=== PATIENT | male | born 1995 | race Caucasian/White ===

== ENCOUNTER 2024-05-02 01:17 | Inpatient (IN) | payer OTHER, SELFPAY ==
[2024-05-02] VITALS (13 sets, daily range): BP systolic 93–117; BP diastolic 48–76; PULSE 77–94; RESP 13–20; TEMP 36.1–37.2; O2SAT 94–100; BMI 29.4
--- NOTE | ~2024-05-02 | XR_ITS ---
CLINICAL HISTORY: overdose 1 view chest x-ray Comparison: None Findings: Low lung volumes with mild bibasilar atelectasis and/or pneumonitis. No pneumothorax or pleural effusion with obscuration of the lung bases. Cardiac silhouette and imaged mediastinum are accentuated by AP magnification. Osseous structures are unremarkable for technique. IMPRESSION: Low lung volumes with bibasilar atelectasis and/or pneumonitis This document has been electronically signed by: Mark Kong MD on 05/02/2024 02:27:58
--- NOTE | 2024-05-02 01:48 | ECG_ITS ---
Test Reason : OVERDOSE Blood Pressure : */* mmHG Vent. Rate : 81 BPM Atrial Rate : 81 BPM P-R Int : 164 ms QRS Dur : 92 ms QT Int : 402 ms P-R-T Axes : 40 -12 -5 degrees QTcB Int : 466 ms Normal sinus rhythm Minimal voltage criteria for LVH, may be normal variant ( R in aVL ) Borderline ECG No previous ECGs available Referred By: Mika Schuster Electronically Signed By: ESTHER VILLEGAS
[2024-05-02 02:24] LABS: Basophils Percent Auto 0.8 % (0-2); Eosinophils Percent Auto 0.6 % (0-4); Hematocrit 39.4 % (42.0-52.0); Imm Gran Abs Auto 0.02 X10*3/uL (0.00-0.03); Imm Gran Pct Auto 0.4 % (0.0-0.4); Lymphocytes Absolute Auto 1.3 X10*3/uL (1.2-4.9); MANUAL DIFF FLAG NO; Mean Corpuscular HGB Conc 35.5 g/dl (31.0-36.0); Mean Corpuscular Hemoglobin 31.1 pg (27.0-33.0); Mean Corpuscular Volume 87.6 fL (80.0-98.0); Mean Platelet Volume 9.4 fL (9.4-12.4); Monocytes Absolute Auto 0.2 X10*3/uL (0.1-1.2); Monocytes Percent Auto 3.7 % (2-11); Neutrophils Absolute Auto 3.5 x10*3/uL (2.0-8.3); Neutrophils Percent Auto 68.5 % (45-73); Platelet Count 194 X10*3/uL (160-400); Red Cell Distribution Width 11.8 % (11.0-16.0); White Blood Count 5.1 X10*3/uL (4.8-10.8)
[2024-05-02 02:36] LABS: Prothrombin Time 11.4 SEC (10.9-12.4)
[2024-05-02 02:39] LABS: Partial Thromboplastin Time 30.1 SEC (26.0-36.8)
[2024-05-02 02:44] LABS: Acetaminophen LAB < 3 mcg/mL (<30); Salicylate < 5.0 mg/dL (15-30)
--- NOTE | 2024-05-02 02:46 | ED_ITS ---
HPI - Overdose General Chief Complaint: Overdose Stated Complaint: overdose Time Seen by Provider: 05/02/24 01:35 Source: patient and family Mode of arrival: EMS Limitations: no limitations History of Present Illness ED Provider: HPI Narrative: Patient's history of depression have strained relationship with his girlfriend around 23:00 patient took about 10 tablets of 0.5 mg Klonopin and 10 tablets 50 mg of gabapentin also had few drinks girlfriend went out from 01/19 when she came back at 12:30 patient was found groggy and told this to the girlfriend patient does have prior history cutting himself do have family history of depression and suicidal attempt Related Data Allergies Allergy/AdvReac Type Severity Reaction Status Date / Time Unable to Assess Allergy Verified 05/02/24 01:39 Review of Systems 2 Review of Systems: Yes all other systems are reviewed and are negative [facility] Social History Social History Smoked in Last 30 Days: No Use of substances other than those prescribed or required for medical reasons: No Advance Directives: No Advance Directives Information Provided: Yes Physical Exam 2 Vital Signs: Vital Signs: Last Vital Signs Temp 98.9 F 05/02/24 06:00 Pulse 77 05/02/24 06:45 Resp 14 05/02/24 06:45 BP 110/69 05/02/24 06:45 Pulse Ox 100 05/02/24 06:45 O2 Del Method Nasal Cannula 05/02/24 06:45 O2 Flow Rate 1 05/02/24 06:45 BMI result Body Mass Index 29.4 Appearance: Alert. Lethargic falling sleep but able to drink water No acute distress. Eyes: PERRLA, No Nystagmus ENT: Pharynx normal. Oral Mucosa moist Neck: Normal inspection. Neck supple. CVS: Normal heart rate and rhythm. Pulses normal. Respiratory: No respiratory distress. Equal air entry bilateral, no wheezing/rales/rhonchi Abdomen: Soft and nontender. Bowel sounds are present, no mass palpable, no CVA tenderness Skin: Skin warm and dry. Normal skin color. Normal skin turgor. Extremities: No lower extremity edema. No calf tenderness Neuro: Oriented X 3. No motor deficit. No sensory deficit.No cerebellar signs , cranial nerves II-XII intact Medications Administered Discontinued Medications Generic Name Dose Route Start Last Admin Trade Name Slim PRN Reason Stop Dose Admin Sodium Chloride 1,000 mls @ 999 mls/hr 05/02/24 04:07 05/02/24 05:22 Ns IV 05/02/24 05:07 Infused .Q1H1M ONE Infusion Medical Decision Making Medical Decision Making [facility] Narrative: Patient with Klonopin and gabapentin non lethal dose along with patient has had ETOH with severe depression will consult care team for further evaluation. Does have history of suicidal attempt in the past Lab Data [facility] Lab Attestation statement: I reviewed the patient's lab results. 05/02/24 02:18 05/02/24 02:18 Labs: Lab Results 05/02/24 05/02/24 Range/Units 02:18 02:20 WBC 5.1 (4.8-10.8) X10*3/uL RBC 4.50 L (4.60-5.80) X10*6/uL Hgb 14.0 (14.0-18.0) g/dl Hct 39.4 L (42.0-52.0) % MCV 87.6 (80.0-98.0) fL MCH 31.1 (27.0-33.0) pg MCHC 35.5 (31.0-36.0) g/dl RDW 11.8 (11.0-16.0) % Plt Count 194 (160-400) X10*3/uL MPV 9.4 (9.4-12.4) fL Immature Gran % (Auto) 0.4 (0.0-0.4) % Neut % (Auto) 68.5 (45-73) % Lymph % (Auto) 26.0 (20-40) % [place] % (Auto) 3.7 (2-11) % Eos % (Auto) 0.6 (0-4) % Baso % (Auto) 0.8 (0-2) % Lymph # (Auto) 1.3 (1.2-4.9) X10*3/uL [place] # (Auto) 0.2 (0.1-1.2) X10*3/uL Eos # (Auto) 0.0 (0.0-0.4) X10*3/uL Baso # (Auto) 0.0 (0.0-0.2) X10*3/uL Abs Immat Gran (auto) 0.02 (0.00-0.03) X10*3/uL Absolute Neuts (auto) 3.5 (2.0-8.3) x10*3/uL Absolute Nucleated RBC 0.000 (0.0-0.012) X10*3/uL Nucleated RBC % (auto) 0.0 (0.0-0.2) /100WBC PT 11.4 (10.9-12.4) SEC INR 1.0 (0.9-1.1) APTT 30.1 (26.0-36.8) SEC Sodium 143 (135-145) mmol/L Potassium 3.9 (3.3-5.1) mmol/L Chloride 111 H (96-108) mmol/L Carbon Dioxide 23 (22-29) mmol/L Anion Gap 13 (12-20) BUN 6 L (9-16) mg/dL Creatinine 0.86 (0.5-1.4) mg/dL Estim Creat Clear Calc 135.2 Estimated GFR > 60 Random Glucose 123 H (60-115) mg/dL Calcium 8.4 (8.4-10.2) mg/dL Magnesium 2.5 (1.6-2.6) mg/dL Total Bilirubin 0.6 (0.0-1.0) mg/dL AST 33 (5-37) U/L ALT 32 (0-40) U/L Alkaline Phosphatase 86 (39-117) U/L Troponin I High Sens < 2.7 (<3.5-35.0) ng/L Total Protein 7.5 (6.5-8.0) g/dL Albumin 4.3 (3.5-5.0) g/dL Salicylates < 5.0 L (15-30) mg/dL Acetaminophen < 3 (<30) mcg/mL Ethyl Alcohol 257 mg/dL Influenza Type A (PCR) NEGATIVE (Negative) Influenza Type B (PCR) NEGATIVE (Negative) RSV RNA Qual (PCR) NEGATIVE (Negative) SARS-CoV-2 RNA (RT-PCR) NEGATIVE (Negative) Discharge Plan Discharge Clinical Impression: Suicide attempt by multiple drug overdose Patient Disposition: Still a Patient Print Language: Uzbek
[2024-05-02 02:48] LABS: Troponin-I High Sensitivity < 2.7 ng/L (<3.5-35.0)
[2024-05-02 02:49] LABS: Alanine Aminotransferase 32 U/L (0-40); Albumin Level 4.3 g/dL (3.5-5.0); Anion Gap 13 (12-20); Aspartate Amino Transferase 33 U/L (5-37); Bilirubin Total 0.6 mg/dL (0.0-1.0); Blood Urea Nitrogen 6 mg/dL (9-16); Calcium 8.4 mg/dL (8.4-10.2); Carbon Dioxide 23 mmol/L (22-29); Chloride 111 mmol/L (96-108); Creatinine Clr Calc Pharmacy 135.2; Estimated Glomerular Filt Rate > 60; Ethanol 257 mg/dL; Glucose Random 123 mg/dL (60-115); Magnesium 2.5 mg/dL (1.6-2.6); Potassium 3.9 mmol/L (3.3-5.1); Sodium 143 mmol/L (135-145); Total Protein 7.5 g/dL (6.5-8.0)
[2024-05-02 02:53] LABS: Alkaline Phosphatase 86 U/L (39-117)
[2024-05-02 03:01] LABS: Influenza A PCR NEGATIVE (Negative); Influenza B PCR NEGATIVE (Negative); Resp Syncy Virus RNA Qual PCR NEGATIVE (Negative); SARS COV2 PCR INHOUSE NEGATIVE (Negative)
[2024-05-02] MEDS: 0.9 % Sodium Chloride 1,000 ML 999 ML IV (04:11)
--- NOTE | 2024-05-02 05:17 | PC.NURSE ---
This RN called poison control per poison control, support care only is needed, to give gentle IVF if vitals indicate. Per poision control sedation could last 6-8 hours. MD notified
--- NOTE | 2024-05-02 06:19 | PC.NURSE ---
provider notified of patients vitals no new orders at this time
--- NOTE | 2024-05-02 08:52 | PC.NURSE ---
pt is extremely sleepy at this time, pt started to have some hiccups/gurgling noises for a few seconds, attempted to wake the pt up- pt did wake for a very breath second-stated that he does not have pain then right back to sleep, vs stable at this time, ns on the monitor, parents at bedside and sitter at bedside
--- NOTE | 2024-05-02 12:48 | PC.NURSE ---
pt continuos on being sleepy, vs stable family at bedside and sitter at bedside
--- NOTE | 2024-05-02 13:15 | PC.NURSE ---
pt is starting to wake up and stay awake at this time
--- NOTE | 2024-05-02 13:25 | PC.NURSE ---
care team at bedside
--- NOTE | 2024-05-02 13:28 | MHC.CARE ---
Rocket Test Fire Worker received call from pt's fiance that pt has awoken. Rocket Test Fire Worker met with pt in ED19 briefly and it appeared pt was still very groggy/ impaired. He politely asked if he could have some time before meeting with the CARE Team. Rocket Test Fire Worker informed pt that someone from the CARE Team will be able to follow-up with him once he is awake and more alert for disposition planning, but the plan for him currently is to remain in the ED. Pt is agreeable to this and thanks typewriter aligner. He seems open to [facility]. His fiance is at bedside.
[2024-05-02 20:10] LABS: Amphetamine Screen Urine Not Detected (Not Detect); Barbiturates, Urine Not Detected (Not Detect); Benzodiazepines Screen Urine Not Detected (Not Detect); Buprenorphine Scr Not Detected (Not Detect); Cannabinoid Screen Urine POSITIVE (Not Detect); Cocaine Screen Urine Not Detected (Not Detect); Fentanyl, urine Not Detected (Not Detect); Methadone Screen, Urine Not Detected (Not Detect); Opiate Screen Urine Not Detected (Not Detect); Oxycodone Screen Urine Not Detected (Not Detect); Phencyclidine Screen Urine Not Detected (Not Detect)
[2024-05-03 06:10] VITALS: BP 137/99; PULSE 70; RESP 18; TEMP 37.2; O2SAT 96
--- NOTE | 2024-05-03 06:19 | PC.NURSE ---
Patient slept through the night, no distress observed/reported, disposition per care team is section 12 inpatient bed search, 15 minutes safety check, no behavior and safety concerns, will continue to monitor
--- NOTE | 2024-05-03 06:59 | PC.NURSE ---
Assumed care of patient at 0645, patient appears to be sleeping, respirations even and unlabored, no apparent distress noted. Continue plan of care for inpatient bedsearch
--- NOTE | 2024-05-03 09:13 | PHA.MEDREC ---
Pharmacy Consult ? Medication Reconciliation Pharmacy has completed the medication reconciliation. Reviewed med rec done by nursing (Pavel).
[2024-05-03] MEDS: Nicotine Polacrilex 2 MG GUM BUCCAL ×2 (17:08→20:09)
[2024-05-03 20:09] VITALS: BP 136/94; PULSE 82; RESP 18; TEMP 36.9; O2SAT 99
[2024-05-04 06:03] VITALS: BP 127/85; PULSE 78; RESP 16; TEMP 36.7; O2SAT 98
[2024-05-04] MEDS: Nicotine Polacrilex 2 MG GUM BUCCAL ×2 (07:57→10:39)
[2024-05-04] MEDS: DULoxetine HCl 30 MG CAPSULE.DR PO (08:27)
--- NOTE | 2024-05-04 12:40 | PC.NURSE ---
Report to floor
[2024-05-04 14:34] VITALS: BMI 29.1
[2024-05-04 14:51] VITALS: BP 125/86; PULSE 79; RESP 16; TEMP 36.6; O2SAT 99
[2024-05-04] MEDS: Nicotine Polacrilex Lozenge 4 MG LOZENGE BUCCAL ×2 (15:23→18:58)
--- NOTE | 2024-05-04 16:19 | PC.ADMIT ---
This is the 1st admission for this 29 y.o. male to a [facility] Behavioral Health unit. Arrived on milieu at 1325 on Section 12A and placed on 15 min safety checks. Referred by [facility] Care Team with Dx of Major Depressive D/O, recurrent, severe. Precipitating events to admission: brought to [facility] ED by ambulance due to suicide attempt via intentional overdose on Klonopin and Gabapentin. Nurse to nurse done with ED pod prior to admission. Skin check/car changer done upon admission with 2 staff present. Reports stressors as relationship stressors. Reports 1 prior suicide attempt Feb 2024 via cutting right wrist with knife. States fiance interrupted attempt in Feb. Substance issues: Tox screen positive for nydiauana, BAL 257 upon admission to ED 05/02/24. CIWA results 4, upon admission to this unit. Slight left hand tremor noted, will continue to monitor. Reports drinking 4x weekly, accepting of addiction counselor, denies cravings. ED pod reported chest xray indicated pneumonia. Pt asymptomatic, no antibiotics ordered. Rates depression #7-8, anxiety #2 on scale 1-10(10 worse. Denies SI/HI, denies AH/VH. Visits scheduled with firoz and parents for this miky. Met with Liz Patterson APRN and signed CV.
[2024-05-04] MEDS: LORazepam 1 MG TABLET PO (18:02)
[2024-05-04 19:57] VITALS: BP 137/88; PULSE 108; TEMP 36.6; O2SAT 96
[2024-05-04] MEDS: hydrOXYzine HCL 25 MG TABLET PO (21:07)
[2024-05-04] MEDS: traZODone HCL 50 MG TABLET PO (21:07)
[2024-05-05 08:09] VITALS: BP 115/70; PULSE 93; RESP 18; TEMP 36; O2SAT 98
[2024-05-05] MEDS: Folic Acid 1 MG TABLET PO (08:25)
[2024-05-05] MEDS: DULoxetine HCl 30 MG CAPSULE.DR PO (08:25)
[2024-05-05] MEDS: Thiamine HCL 100 MG TABLET PO (08:25)
[2024-05-05] MEDS: Nicotine Polacrilex Lozenge 4 MG LOZENGE BUCCAL ×3 (08:58→18:29)
[2024-05-05 09:14] LABS: Cholesterol 248 mg/dL (<200); HDL Cholesterol 47 mg/dL (>40); LDL Cholesterol Calculated 155 mg/dL (<100); Triglycerides 232 mg/dL (<150)
[2024-05-05 09:21] LABS: Estimated Average Glucose 103 mg/dL; Hemoglobin A1C 143.5345 umol/L; Hemoglobin A1c % 5.2 % (<6.0); Total Hemoglobin (HGBA1C) 4304.9314 umol/L
--- NOTE | 2024-05-05 09:25 | P.HPPS_ITS ---
HPI Date of Service: 05/05/24 Chief Complaint: Overdose Sources of Information: patient interviewed, chart reviewed and crisis/core team assessment reviewed HPI Subjective Notes: [place] Warning and Conditional Voluntary Narrative: Patient is a 29 yo male with hx of Depression, PTSD, ADHD, alcohol use disorder, who presents for intentional overdose in face of untreated depression and relational strife. Pt reports up until this February he was doing overall well, coping as usual with his regular, chronic depression. In late February, big argument with beth and she moved out for a week. She came back, another argument and she left again; he was intoxicated, had SI thought, debated whether to end his life but only superficial cut wrist once he heard her returning home...she helped him clean up, called Crisis who referred him to PCP. He and beth reconciled and started couples therapy throughout March which was a good month. Pt reports that one issue throughout their relationship is his struggle with physical intimacy (due to hx of depression?, daily alcoholism?); over the past two weeks, his Fiance expressed increased frustration wit this and said she wants to have an open relationship. This upset him; he realized he needs to change or lose the relationship but in her frustration, she met up with a male friend intending sexual relationship. He found this out (she admitted it); he punched a trash can, drank 1/2 bottle of Gin and took overdose, though says he does not remember much about it other than glimpses; he then woke up next day in ED. Denies other drug use; denies hx of manic episodes, AVH/delusions. Denies overt trauma. He has been on Cymbalta 30mg for over a year with little effect. Past Psychiatric History: No past psych admissions Recently started therapy no hx of suicide attempts depressed since child Medication trials: Zoloftd 50mg 6months; seemed to help Wellbutrin 75mg daily Lamictal 100mg daily Cymbalta ritalin XR 36 daily Medical Evaluation Reviewed: Yes PENDING SALE TO [facility] Medical History (Updated 05/06/24 @ 10:20 by Mark Robertson MD) Alcohol use disorder MDD (major depressive disorder), recurrent severe, without psychosis Family History: Sister: attempted suicide Sister: bipolar disorder Maternal side suspected bipolar (great uncle ran out of lithium and killed his ) Social History: 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 no hx of withdrawal seizures denies other current drug use (but in past would intermittently take other drugs if given to Trauma History: no overt trauma Diagnostics Vital Signs (24Hr): Vital Signs - 24 hr 05/04/24 14:51 05/04/24 19:57 05/05/24 08:09 Temperature 97.8 F 97.9 F 96.8 F Pulse Rate 79 108 H 93 Respiratory Rate 16 18 Blood Pressure 125/86 137/88 115/70 Pulse Oximetry 99 96 98 Oxygen Delivery Method Room Air Room Air Room Air BMI result Body Mass Index 29.1 Labs 05/02/24 02:18 05/02/24 02:18 Labs: Laboratory Results - last 48 hr 05/05/24 08:17 Estimat Average Glucose 103 Hemoglobin A1c % 5.2 Triglycerides 232 H Cholesterol 248 H LDL Cholesterol, Calc 155 H HDL Cholesterol 47 Meds/Allergies Meds Home Medications ?Medication ?Instructions ?Recorded ?Confirmed ?Type duloxetine 30 mg capsule,delayed 30 mg PO DAILY 05/02/24 05/02/24 History release methylphenidate HCl 36 mg 36 mg PO DAILY 05/02/24 05/02/24 History tablet,extended release 24 hr Allergies Allergies Allergy/AdvReac Type Severity Reaction Status Date / Time Unable to Assess Allergy Verified 05/02/24 01:39 Mental Status Exam Mental Status Exam Narrative: Pt is alert and oriented; behavior is cooperative, calm, quiet; patient is not in distress; dressed in casual attire with unkempt hair but adequate hygiene; mood is described as depressed and affect congruent, downcast; eye contact appropriate; Speech is slowed and soft; normal prosody; psychomotor retardation present; thought process is organized and goal directed; Thought content is on relational strife, depression, tx; otherwise pertinent to relevant topics and without any delusional content, paranoid ideations or grandiosity; denies any SI/HI. Denies AVH and there is no evidence of perceptual disturbance. Patients insight and judgment impaired. Assessment & Plan Assessment & Plan (1) MDD (major depressive disorder), recurrent severe, without psychosis: Status: Acute Code(s): F33.2 - Major depressive disorder, recurrent severe without psychotic features (2) Alcohol use disorder: Status: Acute Code(s): F10.90 - Alcohol use, unspecified, uncomplicated Plan Patient is a 29 yo male with hx of Depression, PTSD, ADHD, alcohol use disorder, who presents for intentional overdose in face of untreated depression and relational strife. Pt reports up until this February he was doing overall well, coping as usual with his regular, chronic depression. In late February, big argument with beth and she moved out for a week. She came back, another argument and she left again; he was intoxicated, had SI thought, debated whether to end his life but only superficial cut wrist once he heard her returning home...she helped him clean up, called Crisis who referred him to PCP. He and beth reconciled and started couples therapy throughout March which was a good month. Pt reports that one issue throughout their relationship is his struggle with physical intimacy (due to hx of depression?, daily alcoholism?); over the past two weeks, his Fiance expressed increased frustration wit this and said she wants to have an open relationship. This upset him; he realized he needs to change or lose the relationship but in her frustration, she met up with a male friend intending sexual relationship. He found this out (she admitted it); he punched a trash can, drank 1/2 bottle of Gin and took overdose, though says he does not remember much about it other than glimpses; he then woke up next day in ED. Denies other drug use; denies hx of manic episodes, AVH/delusions. Denies overt trauma. He has been on Cymbalta 30mg for over a year with little effect. Formulation/Clinical reasoning: long standing depression, poorly treated with inadequate medication trials, compounded by years of daily alcohol abuse. Pt wants treatment. Physical intimacy issues likely due to a combination of etiologies, including SNRI use (no overt symptoms of organic erectile dysfunction). Will keep this in mind as make treatment decisions. Plan: CV q15 min checks CIWA/ativan prn continue Cymbalta 30mg daily for now. Elevated cholesterol Patient educated on: diagnosis, medication risk/benefits and substance abuse Informed Consent: understands Reason for continued inpatient stay Substantial Risk for: rapid decompensation Statement Statement: I have reviewed the history and physical and performed a pertinent examination on my patient. No changes have occurred unless specified. If the History and Physical was not performed prior to admission, the Hospitalist's service will be consulted for completing the admission physical. Time Spent With Patient Time: Total time managing care of this patient today ____ minutes.
[2024-05-05 09:28] LABS: TSH reflex Free T4 1.33 uIU/mL (0.32-4.0)
[2024-05-05 13:33] VITALS: BP 133/90; PULSE 99; RESP 18; TEMP 36.4; O2SAT 98
[2024-05-05] MEDS: LORazepam 1 MG TABLET PO ×2 (16:31→21:07)
[2024-05-05] MEDS: hydrOXYzine HCL 25 MG TABLET PO (16:31)
[2024-05-05 16:35] VITALS: BP 125/72; PULSE 83; RESP 20; TEMP 37.1; O2SAT 98
[2024-05-05 19:59] VITALS: BP 140/94; PULSE 108; TEMP 36.2; O2SAT 96
[2024-05-05] MEDS: traZODone HCL 50 MG TABLET PO (21:42)
[2024-05-06 09:00] VITALS: BP 131/83; PULSE 97; RESP 18; TEMP 36; O2SAT 97
[2024-05-06] MEDS: Folic Acid 1 MG TABLET PO (09:25)
[2024-05-06] MEDS: Thiamine HCL 100 MG TABLET PO (09:25)
[2024-05-06] MEDS: DULoxetine HCl 30 MG CAPSULE.DR PO (09:25)
[2024-05-06] MEDS: Nicotine Polacrilex Lozenge 4 MG LOZENGE BUCCAL ×3 (09:27→17:59)
--- NOTE | 2024-05-06 10:23 | HO.PSYCHPN ---
Subjective Subjective Date of Service: 05/06/24 Reason For Visit: Overdose Interim History: met with pt; discussed with team Patient remains depressed but is starting to feel better. Yesterday, his fiancee met with him on the unit and ended there relationship; patient said he had a lot of feelings but overall his predominant feeling was a sense of relief...realizes he was holding on to relationship that he just did not have the energy to extract himself from. He said he was surprised himself but that it feels right. Ironically, he is much more interested in physical intimacy with a thought of being with another woman. Patient expressed gratitude for his supportive parents who have come to visit as well as his generous and supportive friends. Patient denies any SI at all. Regarding medication, reviewed risks/side effects of options; patient has only taken SSRIs, patient agreed to start venlafaxine as he may have less sexual side effects with this class (Wellbutrin caused GI upset) Mental Status Exam Mental Status Exam Narrative: Pt is alert and oriented; behavior is cooperative, calm, quiet; patient is not in distress; dressed in casual attire with unkempt hair but adequate hygiene; mood is described as little better and affect congruent; eye contact appropriate; Speech is still slowed and soft; normal prosody;less psychomotor retardation present; thought process is organized and goal directed; Thought content is on processing feelings of breakup, tx; otherwise pertinent to relevant topics and without any delusional content, paranoid ideations or grandiosity; denies any SI/HI. Denies AVH and there is no evidence of perceptual disturbance. Patients insight and judgment fair. Diagnostics Vital Signs (24Hr): Vital Signs - 24 hr 05/05/24 13:33 05/05/24 16:35 05/05/24 19:59 Temperature 97.5 F 98.8 F 97.2 F Pulse Rate 99 83 108 H Respiratory Rate 18 20 Blood Pressure 133/90 H 125/72 140/94 H Pulse Oximetry 98 98 96 Oxygen Delivery Method Room Air Room Air Room Air BMI result Body Mass Index 29.1 Labs 05/02/24 02:18 05/02/24 02:18 Labs: Laboratory Results - last 48 hr 05/05/24 08:17 Estimat Average Glucose 103 Hemoglobin A1c % 5.2 Triglycerides 232 H Cholesterol 248 H LDL Cholesterol, Calc 155 H HDL Cholesterol 47 TSH 1.33 Medications Medications Current Medications Acetaminophen (Acetaminophen 325 Mg Tablet) 650 mg PO Q6H PRN PRN Reason: Headache/Pain Mild Scale (1-3) Al Hydroxide/Mg Hydroxide (Magnesium Hydrox/Alum Hydrox 30 Ml Oral.Susp) 30 ml PO Q6H PRN PRN Reason: Heartburn/Nausea Duloxetine HCl (Duloxetine Hcl 30 Mg Capsule.Dr) 30 mg PO DAILY [facility] Last Admin: 05/06/24 09:25 Dose: 30 mg Folic Acid (Folic Acid 1 Mg Tablet) 1 mg PO DAILY [facility] Last Admin: 05/06/24 09:25 Dose: 1 mg Hydroxyzine HCl (Hydroxyzine Hcl 25 Mg Tablet) 25 mg PO Q6H PRN PRN Reason: Anxiety Last Admin: 05/05/24 16:31 Dose: 25 mg Magnesium Hydroxide (Milk Of Magnesia 30 Ml Oral.Susp) 30 ml PO DAILY PRN PRN Reason: Constipation Nicotine (Nicotine 21 Mg Patch.Td24) 21 mg TRANSDERMA DAILY PRN PRN Reason: smoking cessation Nicotine Polacrilex (Nicotine Polacrilex Lozenge 4 Mg Lozenge) 4 mg BUCCAL Q2H PRN PRN Reason: Nicotine Cravings Last Admin: 05/06/24 09:27 Dose: 4 mg Olanzapine (Olanzapine 5 Mg Tablet) 5 mg PO TID PRN PRN Reason: agitation Thiamine HCl (Thiamine Hcl 100 Mg Tablet) 100 mg PO DAILY [facility] Last Admin: 05/06/24 09:25 Dose: 100 mg Trazodone HCl (Trazodone Hcl 50 Mg Tablet) 50 mg PO BEDTIME MRX1 PRN PRN Reason: Insomnia Last Admin: 05/05/24 21:42 Dose: 50 mg Allergies Allergies Allergy/AdvReac Type Severity Reaction Status Date / Time Unable to Assess Allergy Verified 05/02/24 01:39 Assessment & Plan Assessment & Plan (1) MDD (major depressive disorder), recurrent severe, without psychosis: Status: Acute Code(s): F33.2 - Major depressive disorder, recurrent severe without psychotic features (2) Alcohol use disorder: Status: Acute Code(s): F10.90 - Alcohol use, unspecified, uncomplicated Plan Patient is a 29 yo male with hx of Depression, PTSD, ADHD, alcohol use disorder, who presents for intentional overdose in face of untreated depression and relational strife. Pt reports up until this February he was doing overall well, coping as usual with his regular, chronic depression. In late February, big argument with beht and she moved out for a week. She came back, another argument and she left again; he was intoxicated, had SI thought, debated whether to end his life but only superficial cut wrist once he heard her returning home...she helped him clean up, called Crisis who referred him to PCP. He and beth reconciled and started couples therapy throughout March which was a good month. Pt reports that one issue throughout their relationship is his struggle with physical intimacy (due to hx of depression?, daily alcoholism?); over the past two weeks, his Firoz expressed increased frustration wit this and said she wants to have an open relationship. This upset him; he realized he needs to change or lose the relationship but in her frustration, she met up with a male friend intending sexual relationship. He found this out (she admitted it); he punched a trash can, drank 1/2 bottle of Gin and took overdose, though says he does not remember much about it other than glimpses; he then woke up next day in ED. Denies other drug use; denies hx of manic episodes, AVH/delusions. Denies overt trauma. He has been on Cymbalta 30mg for over a year with little effect. Formulation/Clinical reasoning: long standing depression, poorly treated with inadequate medication trials, compounded by years of daily alcohol abuse. Pt wants treatment. Physical intimacy issues likely due to a combination of etiologies, including SNRI use (no overt symptoms of organic erectile dysfunction). Will keep this in mind as make treatment decisions. Hospital course: 05/06 Patient remains depressed but is starting to feel better. Yesterday, his firoze met with him on the unit and ended there relationship; patient said he had a lot of feelings but overall his predominant feeling was a sense of relief...realizes he was holding on to relationship that he just did not have the energy to extract himself from. He said he was surprised himself but that it feels right. Ironically, he is much more interested in physical intimacy with a thought of being with another woman. Patient expressed gratitude for his supportive parents who have come to visit as well as his generous and supportive friends. Patient denies any SI at all. discussed alcoholism; pt ambivalent about to what extent he wants to pursue sobriety Regarding medication, reviewed risks/side effects of options; patient has only taken SSRIs, patient agreed to start venlafaxine as he may have less sexual side effects with this class (Wellbutrin caused GI upset); either way patient said that he rather treat his depression than worry about sexual side effects at this time. -will consider adding BuSpar to mitigate sexual side effect Plan: CV q15 min checks Start venlafaxine 37.5 DC Cymbalta 30mg Consider starting BuSpar preemptively to mitigate risk of sexual side effects Elevated cholesterol Patient educated on: diagnosis, medication risk/benefits, substance abuse and therapeutic strategies Informed Consent: understands Reason for continued inpatient stay Substantial Risk for: rapid decompensation Time Spent With Patient Time: Total time managing care of this patient today ____ minutes.
--- NOTE | 2024-05-06 11:56 | MHC.RECOVRN ---
AUDIT-C Brief Intervention Pt had positive screen for unhealthy alcohol use on admission. Attempted to meet with pt to discuss alcohol use and offer resources, pt declined.
[2024-05-06] MEDS: Venlafaxine HCl ER 37.5 MG CAP.ER.24H PO (19:05)
[2024-05-06 20:00] VITALS: BP 159/93; PULSE 109; RESP 20; TEMP 36.3; O2SAT 97
[2024-05-06] MEDS: hydrOXYzine HCL 25 MG TABLET PO (22:18)
[2024-05-06] MEDS: OLANZapine 5 MG TABLET PO (22:20)
[2024-05-06] MEDS: traZODone HCL 50 MG TABLET PO (22:20)
[2024-05-07 07:00] VITALS: BMI 29.3
[2024-05-07 08:00] VITALS: BP 116/71; PULSE 76; RESP 18; TEMP 36; O2SAT 97
[2024-05-07] MEDS: Folic Acid 1 MG TABLET PO (08:53)
[2024-05-07] MEDS: Thiamine HCL 100 MG TABLET PO (08:53)
[2024-05-07] MEDS: Venlafaxine HCl ER 37.5 MG CAP.ER.24H PO (08:53)
[2024-05-07] MEDS: Nicotine Polacrilex Lozenge 4 MG LOZENGE BUCCAL ×3 (10:41→18:24)
--- NOTE | 2024-05-07 13:44 | P.PNPSI_ITS ---
Subjective Subjective Date of Service: 05/07/24 Reason For Visit: Overdose Subjective Notes: Conditional Voluntary Interim History: Active on unit, social with peers. attending groups. He reports feeling tired but good ; pt is feeling relieved from breakup and haven't felt suicidal since after we broke up . He reports sleeping well and is hoping to be discharged home sooner than later . Social work aware. Medication Compliance: Yes Side effects from medications: No Attending Groups: Yes Mental Status Exam Mental Status Exam Patient Appearance: Well Grooomed Patient Orientation: Person, Place, Time and Situation Level of Consciousness: Awake and Alert Patient Behavior: Appropriate, Cooperative and Good Eye Contact Mood Description: Calm Affect Description: Calm Ability to Follow Directions: Good Speech Pattern: Clear and Appropriate Memory Description: Intact Hallucinations: None Delusions: Not Present Thought Process: Intact and Goal Oriented Thought Content: positive for Intact and positive for Goal Oriented Judgement: Fair Diagnostics Vital Signs (24Hr): Vital Signs - 24 hr 05/06/24 20:00 05/07/24 08:00 Temperature 97.3 F 96.8 F Pulse Rate 109 H 76 Respiratory Rate 20 18 Blood Pressure 159/93 H 116/71 Pulse Oximetry 97 97 Oxygen Delivery Method Room Air Room Air BMI result Body Mass Index 29.1 Labs 05/02/24 02:18 05/02/24 02:18 Medications Medications Current Medications Acetaminophen (Acetaminophen 325 Mg Tablet) 650 mg PO Q6H PRN PRN Reason: Headache/Pain Mild Scale (1-3) Al Hydroxide/Mg Hydroxide (Magnesium Hydrox/Alum Hydrox 30 Ml Oral.Susp) 30 ml PO Q6H PRN PRN Reason: Heartburn/Nausea Folic Acid (Folic Acid 1 Mg Tablet) 1 mg PO DAILY [facility] Last Admin: 05/07/24 08:53 Dose: 1 mg Hydroxyzine HCl (Hydroxyzine Hcl 25 Mg Tablet) 25 mg PO Q6H PRN PRN Reason: Anxiety Last Admin: 05/06/24 22:18 Dose: 25 mg Magnesium Hydroxide (Milk Of Magnesia 30 Ml Oral.Susp) 30 ml PO DAILY PRN PRN Reason: Constipation Nicotine (Nicotine 21 Mg Patch.Td24) 21 mg TRANSDERMA DAILY PRN PRN Reason: smoking cessation Nicotine Polacrilex (Nicotine Polacrilex Lozenge 4 Mg Lozenge) 4 mg BUCCAL Q2H PRN PRN Reason: Nicotine Cravings Last Admin: 05/07/24 10:41 Dose: 4 mg Olanzapine (Olanzapine 5 Mg Tablet) 5 mg PO TID PRN PRN Reason: agitation Last Admin: 05/06/24 22:20 Dose: 5 mg Thiamine HCl (Thiamine Hcl 100 Mg Tablet) 100 mg PO DAILY [facility] Last Admin: 05/07/24 08:53 Dose: 100 mg Trazodone HCl (Trazodone Hcl 50 Mg Tablet) 50 mg PO BEDTIME MRX1 PRN PRN Reason: Insomnia Last Admin: 05/06/24 22:20 Dose: 50 mg Venlafaxine HCl (Venlafaxine Hcl Er 37.5 Mg Cap.Er.24h) 37.5 mg PO DAILY [facility] Last Admin: 05/07/24 08:53 Dose: 37.5 mg Allergies Allergies Allergy/AdvReac Type Severity Reaction Status Date / Time Unable to Assess Allergy Verified 05/02/24 01:39 Assessment & Plan Assessment & Plan (1) MDD (major depressive disorder), recurrent severe, without psychosis: Status: Acute Code(s): F33.2 - Major depressive disorder, recurrent severe without psychotic features (2) Alcohol use disorder: Status: Acute Code(s): F10.90 - Alcohol use, unspecified, uncomplicated Plan Patient is a 29 yo male with hx of Depression, PTSD, ADHD, alcohol use disorder, who presents for intentional overdose in face of untreated depression and relational strife. Pt reports up until this February he was doing overall well, coping as usual with his regular, chronic depression. In late February, big argument with beth and she moved out for a week. She came back, another argument and she left again; he was intoxicated, had SI thought, debated whether to end his life but only superficial cut wrist once he heard her returning home...she helped him clean up, called Crisis who referred him to PCP. He and beth reconciled and started couples therapy throughout March which was a good month. Pt reports that one issue throughout their relationship is his struggle with physical intimacy (due to hx of depression?, daily alcoholism?); over the past two weeks, his Fiance expressed increased frustration wit this and said she wants to have an open relationship. This upset him; he realized he needs to change or lose the relationship but in her frustration, she met up with a male friend intending sexual relationship. He found this out (she admitted it); he punched a trash can, drank 1/2 bottle of Gin and took overdose, though says he does not remember much about it other than glimpses; he then woke up next day in ED. Denies other drug use; denies hx of manic episodes, AVH/delusions. Denies overt trauma. He has been on Cymbalta 30mg for over a year with little effect. Formulation/Clinical reasoning: long standing depression, poorly treated with inadequate medication trials, compounded by years of daily alcohol abuse. Pt wants treatment. Physical intimacy issues likely due to a combination of etiologies, including SNRI use (no overt symptoms of organic erectile dysfunction). Will keep this in mind as make treatment decisions. Hospital course: 05/06 Patient remains depressed but is starting to feel better. Yesterday, his fiancee met with him on the unit and ended there relationship; patient said he had a lot of feelings but overall his predominant feeling was a sense of relief...realizes he was holding on to relationship that he just did not have the energy to extract himself from. He said he was surprised himself but that it feels right. Ironically, he is much more interested in physical intimacy with a thought of being with another woman. Patient expressed gratitude for his supportive parents who have come to visit as well as his generous and supportive friends. Patient denies any SI at all. discussed alcoholism; pt ambivalent about to what extent he wants to pursue sobriety Regarding medication, reviewed risks/side effects of options; patient has only taken SSRIs, patient agreed to start venlafaxine as he may have less sexual side effects with this class (Wellbutrin caused GI upset); either way patient said that he rather treat his depression than worry about sexual side effects at this time. -will consider adding BuSpar to mitigate sexual side effect Plan: CV q15 min checks Start venlafaxine 37.5 DC Cymbalta 30mg Consider starting BuSpar preemptively to mitigate risk of sexual side effects Elevated cholesterol 05/07: continue current tx plan. Patient educated on: diagnosis and medication risk/benefits Reason for continued inpatient stay Substantial Risk for: med/psych decompensation Time Spent With Patient Time: Total time managing care of this patient today _20___ minutes.
[2024-05-07] MEDS: traZODone HCL 50 MG TABLET PO (21:39)
[2024-05-08 08:00] VITALS: BP 116/64; PULSE 69; RESP 16; TEMP 36; O2SAT 97
[2024-05-08] MEDS: Thiamine HCL 100 MG TABLET PO (08:40)
[2024-05-08] MEDS: Venlafaxine HCl ER 37.5 MG CAP.ER.24H PO (08:40)
[2024-05-08] MEDS: Folic Acid 1 MG TABLET PO (08:40)
--- NOTE | 2024-05-08 09:46 | P.PNPSI_ITS ---
Subjective Subjective Date of Service: 05/08/24 Reason For Visit: Overdose Interim History: met with patient; discussed with team; reviewed chart Patient says his mood is very good very encouraged by supportive family and friends...learned today that he actually went 7 months without seeing his parents...which surprised him and revealed how myopic he has been. Discussed his alcoholism and how this has been a likely part of his being distanced from friends and family. Patient agrees that improved mood has much to do with the improved situation as he is grateful to be free of this relationship and optimistic about moving forward his life; however he is also aware of his longstanding chronic depression and feels it would be best to have Effexor dose increased; he also would like BuSpar to be added as a prophylaxis against possible sexual side effects. -patient made safety plan today with vp digital marketing social media and crm Diagnostics Vital Signs (24Hr): Vital Signs - 24 hr 05/08/24 08:00 Temperature 96.8 F Pulse Rate 69 Respiratory Rate 16 Blood Pressure 116/64 Pulse Oximetry 97 Oxygen Delivery Method Room Air BMI result Body Mass Index 29.3 Labs 05/02/24 02:18 05/02/24 02:18 Medications Medications Current Medications Acetaminophen (Acetaminophen 325 Mg Tablet) 650 mg PO Q6H PRN PRN Reason: Headache/Pain Mild Scale (1-3) Al Hydroxide/Mg Hydroxide (Magnesium Hydrox/Alum Hydrox 30 Ml Oral.Susp) 30 ml PO Q6H PRN PRN Reason: Heartburn/Nausea Folic Acid (Folic Acid 1 Mg Tablet) 1 mg PO DAILY [facility] Last Admin: 05/08/24 08:40 Dose: 1 mg Hydroxyzine HCl (Hydroxyzine Hcl 25 Mg Tablet) 25 mg PO Q6H PRN PRN Reason: Anxiety Last Admin: 05/06/24 22:18 Dose: 25 mg Magnesium Hydroxide (Milk Of Magnesia 30 Ml Oral.Susp) 30 ml PO DAILY PRN PRN Reason: Constipation Nicotine (Nicotine 21 Mg Patch.Td24) 21 mg TRANSDERMA DAILY PRN PRN Reason: smoking cessation Nicotine Polacrilex (Nicotine Polacrilex Lozenge 4 Mg Lozenge) 4 mg BUCCAL Q2H PRN PRN Reason: Nicotine Cravings Last Admin: 05/07/24 18:24 Dose: 4 mg Olanzapine (Olanzapine 5 Mg Tablet) 5 mg PO TID PRN PRN Reason: agitation Last Admin: 05/06/24 22:20 Dose: 5 mg Thiamine HCl (Thiamine Hcl 100 Mg Tablet) 100 mg PO DAILY [facility] Last Admin: 05/08/24 08:40 Dose: 100 mg Trazodone HCl (Trazodone Hcl 50 Mg Tablet) 50 mg PO BEDTIME MRX1 PRN PRN Reason: Insomnia Last Admin: 05/07/24 21:39 Dose: 50 mg Venlafaxine HCl (Venlafaxine Hcl Er 37.5 Mg Cap.Er.24h) 37.5 mg PO DAILY [facility] Last Admin: 05/08/24 08:40 Dose: 37.5 mg Allergies Allergies Allergy/AdvReac Type Severity Reaction Status Date / Time Unable to Assess Allergy Verified 05/02/24 01:39 Assessment & Plan Assessment & Plan (1) MDD (major depressive disorder), recurrent severe, without psychosis: Status: Acute Code(s): F33.2 - Major depressive disorder, recurrent severe without psychotic features (2) Alcohol use disorder: Status: Acute Code(s): F10.90 - Alcohol use, unspecified, uncomplicated Plan Patient is a 29 yo male with hx of Depression, PTSD, ADHD, alcohol use disorder, who presents for intentional overdose in face of untreated depression and relational strife. Pt reports up until this February he was doing overall well, coping as usual with his regular, chronic depression. In late February, big argument with beth and she moved out for a week. She came back, another argument and she left again; he was intoxicated, had SI thought, debated whether to end his life but only superficial cut wrist once he heard her returning home...she helped him clean up, called Crisis who referred him to PCP. He and beth reconciled and started couples therapy throughout March which was a good month. Pt reports that one issue throughout their relationship is his struggle with physical intimacy (due to hx of depression?, daily alcoholism?); over the past two weeks, his Fiance expressed increased frustration wit this and said she wants to have an open relationship. This upset him; he realized he needs to change or lose the relationship but in her frustration, she met up with a male friend intending sexual relationship. He found this out (she admitted it); he punched a trash can, drank 1/2 bottle of Gin and took overdose, though says he does not remember much about it other than glimpses; he then woke up next day in ED. Denies other drug use; denies hx of manic episodes, AVH/delusions. Denies overt trauma. He has been on Cymbalta 30mg for over a year with little effect. Formulation/Clinical reasoning: long standing depression, poorly treated with inadequate medication trials, compounded by years of daily alcohol abuse. Pt wants treatment. Physical intimacy issues likely due to a combination of etiologies, including SNRI use (no overt symptoms of organic erectile dysfunction). Will keep this in mind as make treatment decisions. Hospital course: 05/06 Patient remains depressed but is starting to feel better. Yesterday, his fiancee met with him on the unit and ended there relationship; patient said he had a lot of feelings but overall his predominant feeling was a sense of relief...realizes he was holding on to relationship that he just did not have the energy to extract himself from. He said he was surprised himself but that it feels right. Ironically, he is much more interested in physical intimacy with a thought of being with another woman. Patient expressed gratitude for his supportive parents who have come to visit as well as his generous and supportive friends. Patient denies any SI at all. discussed alcoholism; pt ambivalent about to what extent he wants to pursue sobriety Regarding medication, reviewed risks/side effects of options; patient has only taken SSRIs, patient agreed to start venlafaxine as he may have less sexual side effects with this class (Wellbutrin caused GI upset); either way patient said that he rather treat his depression than worry about sexual side effects at this time. -will consider adding BuSpar to mitigate sexual side effect 05/08 Patient says his mood is very good very encouraged by supportive family and friends...learned today that he actually went 7 months without seeing his parents...which surprised him and revealed how myopic he has been. Discussed his alcoholism and how this has been a likely part of his being distanced from friends and family. Patient agrees that improved mood has much to do with the improved situation as he is grateful to be free of this relationship and optimistic about moving forward his life; however he is also aware of his longstanding chronic depression and feels it would be best to have Effexor dose increased; he also would like BuSpar to be added as a prophylaxis against possible sexual side effects. -patient made safety plan today with vp digital marketing social media and crm -will continue to monitor patient however if he remains improved will likely proceed with discharge early next week Plan: CV q15 min checks Increase venlafaxine to 75 mg Start BuSpar 5 mg b.i.d. to mitigate risks of sexual side effects DC Cymbalta 30mg Elevated cholesterol Patient educated on: diagnosis, medication risk/benefits, substance abuse and therapeutic strategies Informed Consent: understands Reason for continued inpatient stay Substantial Risk for: stable for discharge, rapid decompensation and med/psych decompensation Time Spent With Patient Time: Total time managing care of this patient today ____ minutes.
[2024-05-08] MEDS: Nicotine Polacrilex Lozenge 4 MG LOZENGE BUCCAL ×3 (09:56→18:58)
[2024-05-08 20:00] VITALS: BP 119/75; PULSE 96; TEMP 36.8; O2SAT 100
[2024-05-08] MEDS: traZODone HCL 50 MG TABLET PO (22:18)
[2024-05-08] MEDS: busPIRone HCl 5 MG TABLET PO (22:18)
[2024-05-09 08:40] VITALS: BP 127/63; PULSE 75; RESP 18; TEMP 36; O2SAT 98
[2024-05-09] MEDS: Thiamine HCL 100 MG TABLET PO (08:54)
[2024-05-09] MEDS: Folic Acid 1 MG TABLET PO (08:54)
[2024-05-09] MEDS: Venlafaxine HCl ER 75 MG CAP.ER.24H PO (08:54)
[2024-05-09] MEDS: busPIRone HCl 5 MG TABLET PO ×2 (08:54→21:23)
[2024-05-09] MEDS: Nicotine Polacrilex Lozenge 4 MG LOZENGE BUCCAL ×3 (10:08→18:06)
--- NOTE | 2024-05-09 11:18 | HO.PSYCHPN ---
Subjective Subjective Date of Service: 05/09/24 Reason For Visit: Overdose Subjective Notes: Conditional Voluntary Interim History: Patient was seen and discussed in rounds today. Records and plans were reviewed. He has been calm, pleasant and cooperative. Eating and sleeping adequately. He feels improved and his family that is very supportive. No SI. No AVH. No complaints. No changes were made today Review of Systems Review of Systems Yes all other systems are reviewed and are negative Mental Status Exam Mental Status Exam Narrative: In today's visit he is alert, or contact. Affect is appropriate and constricted. No signs of psychosis. Cognitively intact. No SI. Judgment is intact Diagnostics Vital Signs (24Hr): Vital Signs - 24 hr 05/08/24 20:00 05/09/24 08:40 Temperature 98.2 F 96.8 F Pulse Rate 96 75 Respiratory Rate 18 Blood Pressure 119/75 127/63 Pulse Oximetry 100 98 Oxygen Delivery Method Room Air Room Air BMI result Body Mass Index 29.3 Labs 05/02/24 02:18 05/02/24 02:18 Medications Medications Current Medications Acetaminophen (Acetaminophen 325 Mg Tablet) 650 mg PO Q6H PRN PRN Reason: Headache/Pain Mild Scale (1-3) Al Hydroxide/Mg Hydroxide (Magnesium Hydrox/Alum Hydrox 30 Ml Oral.Susp) 30 ml PO Q6H PRN PRN Reason: Heartburn/Nausea Buspirone HCl (Buspirone Hcl 5 Mg Tablet) 5 mg PO BID [facility] Last Admin: 05/09/24 08:54 Dose: 5 mg Folic Acid (Folic Acid 1 Mg Tablet) 1 mg PO DAILY [facility] Last Admin: 05/09/24 08:54 Dose: 1 mg Hydroxyzine HCl (Hydroxyzine Hcl 25 Mg Tablet) 25 mg PO Q6H PRN PRN Reason: Anxiety Last Admin: 05/06/24 22:18 Dose: 25 mg Magnesium Hydroxide (Milk Of Magnesia 30 Ml Oral.Susp) 30 ml PO DAILY PRN PRN Reason: Constipation Nicotine (Nicotine 21 Mg Patch.Td24) 21 mg TRANSDERMA DAILY PRN PRN Reason: smoking cessation Nicotine Polacrilex (Nicotine Polacrilex Lozenge 4 Mg Lozenge) 4 mg BUCCAL Q2H PRN PRN Reason: Nicotine Cravings Last Admin: 05/09/24 10:08 Dose: 4 mg Olanzapine (Olanzapine 5 Mg Tablet) 5 mg PO TID PRN PRN Reason: agitation Last Admin: 05/06/24 22:20 Dose: 5 mg Thiamine HCl (Thiamine Hcl 100 Mg Tablet) 100 mg PO DAILY [facility] Last Admin: 05/09/24 08:54 Dose: 100 mg Trazodone HCl (Trazodone Hcl 50 Mg Tablet) 50 mg PO BEDTIME MRX1 PRN PRN Reason: Insomnia Last Admin: 05/08/24 22:18 Dose: 50 mg Venlafaxine HCl (Venlafaxine Hcl Er 75 Mg Cap.Er.24h) 75 mg PO DAILY [facility] Last Admin: 05/09/24 08:54 Dose: 75 mg Allergies Allergies Allergy/AdvReac Type Severity Reaction Status Date / Time Unable to Assess Allergy Verified 05/02/24 01:39 Assessment & Plan Assessment & Plan (1) MDD (major depressive disorder), recurrent severe, without psychosis: Status: Acute Code(s): F33.2 - Major depressive disorder, recurrent severe without psychotic features (2) Alcohol use disorder: Status: Acute Code(s): F10.90 - Alcohol use, unspecified, uncomplicated Plan Patient is a 29 yo male with hx of Depression, PTSD, ADHD, alcohol use disorder, who presents for intentional overdose in face of untreated depression and relational strife. Pt reports up until this February he was doing overall well, coping as usual with his regular, chronic depression. In late February, big argument with beth and she moved out for a week. She came back, another argument and she left again; he was intoxicated, had SI thought, debated whether to end his life but only superficial cut wrist once he heard her returning home...she helped him clean up, called Crisis who referred him to PCP. He and beth reconciled and started couples therapy throughout March which was a good month. Pt reports that one issue throughout their relationship is his struggle with physical intimacy (due to hx of depression?, daily alcoholism?); over the past two weeks, his Fiance expressed increased frustration wit this and said she wants to have an open relationship. This upset him; he realized he needs to change or lose the relationship but in her frustration, she met up with a male friend intending sexual relationship. He found this out (she admitted it); he punched a trash can, drank 1/2 bottle of Gin and took overdose, though says he does not remember much about it other than glimpses; he then woke up next day in ED. Denies other drug use; denies hx of manic episodes, AVH/delusions. Denies overt trauma. He has been on Cymbalta 30mg for over a year with little effect. Formulation/Clinical reasoning: long standing depression, poorly treated with inadequate medication trials, compounded by years of daily alcohol abuse. Pt wants treatment. Physical intimacy issues likely due to a combination of etiologies, including SNRI use (no overt symptoms of organic erectile dysfunction). Will keep this in mind as make treatment decisions. Hospital course: 05/06 Patient remains depressed but is starting to feel better. Yesterday, his fiancee met with him on the unit and ended there relationship; patient said he had a lot of feelings but overall his predominant feeling was a sense of relief...realizes he was holding on to relationship that he just did not have the energy to extract himself from. He said he was surprised himself but that it feels right. Ironically, he is much more interested in physical intimacy with a thought of being with another woman. Patient expressed gratitude for his supportive parents who have come to visit as well as his generous and supportive friends. Patient denies any SI at all. discussed alcoholism; pt ambivalent about to what extent he wants to pursue sobriety Regarding medication, reviewed risks/side effects of options; patient has only taken SSRIs, patient agreed to start venlafaxine as he may have less sexual side effects with this class (Wellbutrin caused GI upset); either way patient said that he rather treat his depression than worry about sexual side effects at this time. -will consider adding BuSpar to mitigate sexual side effect 05/08 Patient says his mood is very good very encouraged by supportive family and friends...learned today that he actually went 7 months without seeing his parents...which surprised him and revealed how myopic he has been. Discussed his alcoholism and how this has been a likely part of his being distanced from friends and family. Patient agrees that improved mood has much to do with the improved situation as he is grateful to be free of this relationship and optimistic about moving forward his life; however he is also aware of his longstanding chronic depression and feels it would be best to have Effexor dose increased; he also would like BuSpar to be added as a prophylaxis against possible sexual side effects. -patient made safety plan today with social science analyst -will continue to monitor patient however if he remains improved will likely proceed with discharge early next week 05/09/2024: Continue current regimen and plans Plan: CV q15 min checks Increase venlafaxine to 75 mg Start BuSpar 5 mg b.i.d. to mitigate risks of sexual side effects DC Cymbalta 30mg Elevated cholesterol Reason for continued inpatient stay Substantial Risk for: med/psych decompensation Time Spent With Patient Time: Total time managing care of this patient today ____ minutes.
[2024-05-09 20:00] VITALS: BP 141/66; PULSE 91; TEMP 36.8; O2SAT 96
[2024-05-09] MEDS: traZODone HCL 50 MG TABLET PO (21:23)
[2024-05-10 08:00] VITALS: BP 123/79; PULSE 63; RESP 14; TEMP 36.1; O2SAT 97
[2024-05-10] MEDS: Venlafaxine HCl ER 75 MG CAP.ER.24H PO (08:53)
[2024-05-10] MEDS: Folic Acid 1 MG TABLET PO (08:53)
[2024-05-10] MEDS: busPIRone HCl 5 MG TABLET PO ×2 (08:53→21:31)
[2024-05-10] MEDS: Thiamine HCL 100 MG TABLET PO (08:53)
[2024-05-10] MEDS: Nicotine Polacrilex Lozenge 4 MG LOZENGE BUCCAL ×3 (09:02→18:25)
--- NOTE | 2024-05-10 10:42 | HO.PSYCHPN ---
Subjective Subjective Date of Service: 05/10/24 Reason For Visit: Overdose Subjective Notes: Conditional Voluntary Interim History: Patient was seen and discussed in rounds today. Records and plans were reviewed. He has been doing well and has been calm. He had some questions about his Effexor which is new to him. Tolerating the increased dose. No side effects. Talked about the recent break-up with his girlfriend which she has come to terms with and feels that it was a good move. Eating and sleeping well. No complaints. No SI. No changes were made today Review of Systems Review of Systems Yes all other systems are reviewed and are negative Mental Status Exam Mental Status Exam Narrative: In today's visit he is alert, or contact. Affect is appropriate and constricted. No signs of psychosis. Cognitively intact. No SI. Judgment is intact Diagnostics Vital Signs (24Hr): Vital Signs - 24 hr 05/09/24 20:00 05/10/24 08:00 Temperature 98.2 F 96.9 F Pulse Rate 91 63 Respiratory Rate 14 Blood Pressure 141/66 H 123/79 Pulse Oximetry 96 97 Oxygen Delivery Method Room Air Room Air BMI result Body Mass Index 29.3 Labs 05/02/24 02:18 05/02/24 02:18 Medications Medications Current Medications Acetaminophen (Acetaminophen 325 Mg Tablet) 650 mg PO Q6H PRN PRN Reason: Headache/Pain Mild Scale (1-3) Al Hydroxide/Mg Hydroxide (Magnesium Hydrox/Alum Hydrox 30 Ml Oral.Susp) 30 ml PO Q6H PRN PRN Reason: Heartburn/Nausea Buspirone HCl (Buspirone Hcl 5 Mg Tablet) 5 mg PO BID [facility] Last Admin: 05/10/24 08:53 Dose: 5 mg Folic Acid (Folic Acid 1 Mg Tablet) 1 mg PO DAILY [facility] Last Admin: 05/10/24 08:53 Dose: 1 mg Hydroxyzine HCl (Hydroxyzine Hcl 25 Mg Tablet) 25 mg PO Q6H PRN PRN Reason: Anxiety Last Admin: 05/06/24 22:18 Dose: 25 mg Magnesium Hydroxide (Milk Of Magnesia 30 Ml Oral.Susp) 30 ml PO DAILY PRN PRN Reason: Constipation Nicotine (Nicotine 21 Mg Patch.Td24) 21 mg TRANSDERMA DAILY PRN PRN Reason: smoking cessation Nicotine Polacrilex (Nicotine Polacrilex Lozenge 4 Mg Lozenge) 4 mg BUCCAL Q2H PRN PRN Reason: Nicotine Cravings Last Admin: 05/10/24 09:02 Dose: 4 mg Olanzapine (Olanzapine 5 Mg Tablet) 5 mg PO TID PRN PRN Reason: agitation Last Admin: 05/06/24 22:20 Dose: 5 mg Thiamine HCl (Thiamine Hcl 100 Mg Tablet) 100 mg PO DAILY [facility] Last Admin: 05/10/24 08:53 Dose: 100 mg Trazodone HCl (Trazodone Hcl 50 Mg Tablet) 50 mg PO BEDTIME MRX1 PRN PRN Reason: Insomnia Last Admin: 05/09/24 21:23 Dose: 50 mg Venlafaxine HCl (Venlafaxine Hcl Er 75 Mg Cap.Er.24h) 75 mg PO DAILY [facility] Last Admin: 05/10/24 08:53 Dose: 75 mg Allergies Allergies Allergy/AdvReac Type Severity Reaction Status Date / Time Unable to Assess Allergy Verified 05/02/24 01:39 Assessment & Plan Assessment & Plan (1) MDD (major depressive disorder), recurrent severe, without psychosis: Status: Acute Code(s): F33.2 - Major depressive disorder, recurrent severe without psychotic features (2) Alcohol use disorder: Status: Acute Code(s): F10.90 - Alcohol use, unspecified, uncomplicated Plan Patient is a 29 yo male with hx of Depression, PTSD, ADHD, alcohol use disorder, who presents for intentional overdose in face of untreated depression and relational strife. Pt reports up until this February he was doing overall well, coping as usual with his regular, chronic depression. In late February, big argument with beth and she moved out for a week. She came back, another argument and she left again; he was intoxicated, had SI thought, debated whether to end his life but only superficial cut wrist once he heard her returning home...she helped him clean up, called Crisis who referred him to PCP. He and beth reconciled and started couples therapy throughout March which was a good month. Pt reports that one issue throughout their relationship is his struggle with physical intimacy (due to hx of depression?, daily alcoholism?); over the past two weeks, his Fiance expressed increased frustration wit this and said she wants to have an open relationship. This upset him; he realized he needs to change or lose the relationship but in her frustration, she met up with a male friend intending sexual relationship. He found this out (she admitted it); he punched a trash can, drank 1/2 bottle of Gin and took overdose, though says he does not remember much about it other than glimpses; he then woke up next day in ED. Denies other drug use; denies hx of manic episodes, AVH/delusions. Denies overt trauma. He has been on Cymbalta 30mg for over a year with little effect. Formulation/Clinical reasoning: long standing depression, poorly treated with inadequate medication trials, compounded by years of daily alcohol abuse. Pt wants treatment. Physical intimacy issues likely due to a combination of etiologies, including SNRI use (no overt symptoms of organic erectile dysfunction). Will keep this in mind as make treatment decisions. Hospital course: 05/06 Patient remains depressed but is starting to feel better. Yesterday, his fiancee met with him on the unit and ended there relationship; patient said he had a lot of feelings but overall his predominant feeling was a sense of relief...realizes he was holding on to relationship that he just did not have the energy to extract himself from. He said he was surprised himself but that it feels right. Ironically, he is much more interested in physical intimacy with a thought of being with another woman. Patient expressed gratitude for his supportive parents who have come to visit as well as his generous and supportive friends. Patient denies any SI at all. discussed alcoholism; pt ambivalent about to what extent he wants to pursue sobriety Regarding medication, reviewed risks/side effects of options; patient has only taken SSRIs, patient agreed to start venlafaxine as he may have less sexual side effects with this class (Wellbutrin caused GI upset); either way patient said that he rather treat his depression than worry about sexual side effects at this time. -will consider adding BuSpar to mitigate sexual side effect 05/08 Patient says his mood is very good very encouraged by supportive family and friends...learned today that he actually went 7 months without seeing his parents...which surprised him and revealed how myopic he has been. Discussed his alcoholism and how this has been a likely part of his being distanced from friends and family. Patient agrees that improved mood has much to do with the improved situation as he is grateful to be free of this relationship and optimistic about moving forward his life; however he is also aware of his longstanding chronic depression and feels it would be best to have Effexor dose increased; he also would like BuSpar to be added as a prophylaxis against possible sexual side effects. -patient made safety plan today with geriatric social worker -will continue to monitor patient however if he remains improved will likely proceed with discharge early next week 05/09/2024: Continue current regimen and plans 05/10/2024: Continue current regimen and plans Plan: CV q15 min checks Increase venlafaxine to 75 mg Start BuSpar 5 mg b.i.d. to mitigate risks of sexual side effects DC Cymbalta 30mg Elevated cholesterol Patient educated on: medication risk/benefits Reason for continued inpatient stay Substantial Risk for: med/psych decompensation Time Spent With Patient Time: Total time managing care of this patient today ____ minutes.
[2024-05-10 20:00] VITALS: BP 134/80; PULSE 94; RESP 16; TEMP 36.9; O2SAT 98
[2024-05-10] MEDS: traZODone HCL 50 MG TABLET PO (22:11)
[2024-05-10] MEDS: hydrOXYzine HCL 25 MG TABLET PO (22:13)
[2024-05-11 07:55] VITALS: BP 127/80; PULSE 66; RESP 16; TEMP 36.6; O2SAT 100
[2024-05-11] MEDS: Venlafaxine HCl ER 75 MG CAP.ER.24H PO (08:07)
[2024-05-11] MEDS: busPIRone HCl 5 MG TABLET PO (08:07)
[2024-05-11] MEDS: Thiamine HCL 100 MG TABLET PO (08:07)
[2024-05-11] MEDS: Folic Acid 1 MG TABLET PO (08:07)
[2024-05-11] MEDS: Nicotine Polacrilex Lozenge 4 MG LOZENGE BUCCAL (08:52)
--- NOTE | 2024-05-11 09:01 | P.DS_ITS ---
DS: Providers Provider Date of Service: 05/11/24 Date of admission: 05/04/24 11:56 Date of discharge: 05/11/24 Primary care physician: Jo Torre NP Attending physician on admission: Mark Robertson Consults: 05/04/24 17:08 Addiction Medicine Routine Consulting Provider: Addiction Covering Reason for consultation: etoh intake 4x weekly Has provider been notified: Yes Attending physician on discharge: Mark Robertson DS: Diagnosis Discharge Diagnosis (1) MDD (major depressive disorder), recurrent severe, without psychosis: Status: Acute (2) Alcohol use disorder: Status: Acute DS: Medications Discharge Medications Home Medications: Home Medications ?Medication ?Instructions ?Recorded ?Confirmed methylphenidate HCl 36 mg 36 mg PO DAILY 05/02/24 05/02/24 tablet,extended release 24 hr Previous Rx's ?Medication ?Instructions ?Recorded buspirone 5 mg tablet 5 mg PO BID 30 days #60 tabs 05/11/24 hydroxyzine HCl 25 mg tablet 25 mg PO Q6H PRN Anxiety 30 days 05/11/24 #60 tabs nicotine (polacrilex) 4 mg buccal 4 mg buccal Q2H PRN Nicotine 05/11/24 lozenge Cravings 30 days #108 ea trazodone 50 mg tablet 50 mg PO BEDTIME PRN Insomnia 30 05/11/24 days #30 tabs venlafaxine 75 mg capsule,extended 75 mg PO DAILY 30 days #30 caps 05/11/24 release 24 hr Mental Status Exam Mental Status Exam Narrative: Pt is alert and oriented; behavior is cooperative, friendly and calm; patient is not in distress; dressed in casual attire with unkempt hair but adequate hygiene and grooming; mood is described as good and affect congruent; eye contact appropriate; Speech is normal rate, volume and prosody and not pressured; no psychomotor agitation/retardation present; thought process is organized and goal directed; Thought content is on tx; otherwise pertinent to relevant topics and without any delusional content, paranoid ideations or grandiosity; denies any SI/HI. There is no evidence of perceptual disturbance. Patients insight and judgment are intact, fair. Data Data Completed and Pending Completed studies during hospitalization [Text1]: 05/05/24 08:17 Estimat Average Glucose 103 Hemoglobin A1c % 5.2 Triglycerides 232 H Cholesterol 248 H LDL Cholesterol, Calc 155 H HDL Cholesterol 47 TSH 1.33 DS: Summary Hospital Course Hospital Course: HPI: Patient is a 29 yo male with hx of Depression, PTSD, ADHD, alcohol use disorder, who presents for intentional overdose in face of untreated depression and relational strife. Pt reports up until this February he was doing overall well, coping as usual with his regular, chronic depression. In late February, big argument with beth and she moved out for a week. She came back, another argu ment and she left again; he was intoxicated, had SI thought, debated whether to end his life but only superficial cut wrist once he heard her returning home...she helped him clean up, called Crisis who referred him to PCP. He and beth reconciled and started couples therapy throughout March which was a good month. Pt reports that one issue throughout their relationship is his struggle with physical intimacy (due to hx of depression?, daily alcoholism?); over the past two weeks, his Firoz expressed increased frustration wit this and said she wants to have an open relationship. This upset him; he realized he needs to change or lose the relationship but in her frustration, she met up with a male friend intending sexual relationship. He found this out (she admitted it); he punched a trash can, drank 1/2 bottle of Gin and took overdose, though says he does not remember much about it other than glimpses; he then woke up next day in ED. Denies other drug use; denies hx of manic episodes, AVH/delusions. Denies overt trauma. He has been on Cymbalta 30mg for over a year with little effect. Formulation/Clinical reasoning: long standing depression, poorly treated with inadequate medication trials, compounded by years of daily alcohol abuse. Pt wants treatment. Physical intimacy issues likely due to a combination of etiologies, including SNRI use (no overt symptoms of organic erectile dysfunction). Will keep this in mind as make treatment decisions. Hospital course: 05/06 Patient remains depressed but is starting to feel better. Yesterday, his firoze met with him on the unit and ended there relationship; patient said he had a lot of feelings but overall his predominant feeling was a sense of relief...realizes he was holding on to relationship that he just did not have the energy to extract himself from. He said he was surprised himself but that it feels right. Ironically, he is much more interested in physical intimacy with a thought of being with another woman. Patient expressed gratitude for his supportive parents who have come to visit as well as his generous and supportive friends. Patient denies any SI at all. -discussed alcoholism; pt ambivalent about to what extent he wants to pursue sobriety -Regarding medication, reviewed risks/side effects of options; patient has only taken SSRIs, patient agreed to start venlafaxine as he may have less sexual side effects with this class (Wellbutrin caused GI upset); either way patient said that he rather treat his depression than worry about sexual side effects at this time. -will consider adding BuSpar to mitigate sexual side effect 05/08 Patient says his mood is very good very encouraged by supportive family and friends...learned today that he actually went 7 months without seeing his parents...which surprised him and revealed how myopic he has been. Discussed his alcoholism and how this has been a likely part of his being distanced from friends and family. Patient agrees that improved mood has much to do with the improved situation as he is grateful to be free of this relationship and optimistic about moving forward his life; however he is also aware of his longstanding chronic depression and feels it would be best to have Effexor dose increased; he also would like BuSpar to be added as a prophylaxis against possible sexual side effects. Patient remained in good mood, bright affect, future oriented and optimistic. No SI at all. He was engaged in treatment, appropriate with peers and staff and remained in good behavioral and impulse control throughout his admission. Patient is approaching his situation realistically and wants to continue to pursue treatment post discharge including therapy. Patient feels that he and his ex-fiance have come to terms with the end of their relationship and are parting amicably. Patient is returning to live with his parents who are very supportive as this is the agreement he has made with his ex-fiance. Patient has a safety plan should he again become unsafe. Patient has asked for discharge. He agrees that his alcoholism has been a significant problem and for now, he is pursuing sobriety as he figures out how to navigate this issue. He does remain at risk for relapse however longer stay on an inpatient unit will not mitigate this risk further and patient is very aware of his need for help in this area. He is not in imminent risk for harm to self or others and appropriate to return to the community for treatment. Request for discharge honored. Medications: Started on venlafaxine to 75 mg Started on BuSpar 5 mg b.i.d. to mitigate risks of sexual side effects Discontinue Cymbalta 30mg Status at Discharge Functional status at discharge: independent ambulation Overall status at discharge: patient is back to baseline Time Spent with Patient Time attestation: Total time managing care of this patient today _40___ minutes. Time spent: Greater than 30 minutes Specific discharge activities: Met with patient; discussed with team; charting; scripts Discharge Plan Discharge Anticipated Discharge Date/Time: 05/11/24 11:30 Patient Disposition: Home, Self-Care Discharge Diagnosis: MDD, recurrent, severe without psychosis, in full remission Referrals: [facility]: Lilian Mullins (psychiatry) [Other] - 05/19/24 3:00 pm (Hospital discharge appointment for psychiatry Appointment is in person at [facility]) Lisy Marquez [facility] [Other] - 05/11/24 4:00 pm (Scheduled therapy appointment with established provider ) Jo Torre NP [Primary Care Provider] - 05/19/24 2:30 pm Discharge Medications: New nicotine (polacrilex) 4 mg Lozenge 4 mg buccal Q2H PRN (Reason: Nicotine Cravings) 30 Days Qty: 108 0RF buspirone 5 mg Tablet 5 mg PO BID 30 Days Qty: 60 1RF hydroxyzine HCl 25 mg Tablet 25 mg PO Q6H PRN (Reason: Anxiety) 30 Days Qty: 60 1RF trazodone 50 mg Tablet 50 mg PO BEDTIME PRN (Reason: Insomnia) 30 Days Qty: 30 1RF venlafaxine 75 mg Capsule,Extended Release 24hr 75 mg PO DAILY 30 Days Qty: 30 1RF Continued methylphenidate HCl 36 mg tablet extended release 24hr 36 mg PO DAILY Discontinued duloxetine 30 mg capsule,delayed release(DR/EC) 30 mg PO DAILY Discharge Orders: Discharge Order (Routine); Ordered 05/11/24 Ordered By: Mark Robertson Diet: Regular diet Activity on Discharge: As tolerated Stand Alone Forms: Patient Portal Discharge page Print Language: Danish Care Plan Goals: Maintain mood and safe behaviors Take medications as prescribed Continue to pursue sobriety Practice coping skills Continue with outpatient providers and reach out to them as needed Health Concerns: Mood stability and behaviors Sobriety Elevated cholesterol (discussed with patient) Plan of Treatment: Follow up with your PCP, psychiatric provider and other outpatient providers regarding above concerns Take medications as prescribed Assessment: Risk assessment at time of discharge:? Patient was interviewed prior to discharge and found to be fully oriented and without any SI or HI. Patient has improved insight and judgment and wants to continue treatment. Patient is not in imminent risk of harm to self or others and has a safety plan that includes presenting to the closest ER or calling 911 if feeling unsafe.? Patient has been observed closely by nursing and unit staff throughout admission; patient has not engaged in any behaviors that suggest dangerousness to self or others and has demonstrated appropriate behaviors and impulse control
== END 2024-05-11 11:56 | disposition home or self-care (01) | DRG 751 ==
LOC: HO.ED 18:32 → HO.PM5 05-04 12:04
PROVIDERS: Admitting Provider Psychiatry & Neurology Psychiatry; Emergency Provider Internal Medicine; PCP Nurse Practitioner Adult Health; Visit Provider Psychiatry & Neurology Psychiatry
DX: F33.2 Major depressive disorder, recurrent severe without psychotic features (principal); F10.20 Alcohol dependence, uncomplicated; F43.10 Post-traumatic stress disorder, unspecified; J98.11 Atelectasis; Z20.822 Contact with and (suspected) exposure to COVID-19; Y90.8 Blood alcohol level of 240 mg/100 ml or more; F90.9 Attention-deficit hyperactivity disorder, unspecified type; T42.6X2A Poisoning by other antiepileptic and sedative-hypnotic drugs, intentional self-harm, initial encounter; T42.4X2A Poisoning by benzodiazepines, intentional self-harm, initial encounter; Z63.0 Problems in relationship with spouse or partner; Z87.891 Personal history of nicotine dependence; Z79.899 Other long term (current) drug therapy
CPT/HCPCS: 0241U; 36415; 71045; 80053; 80061; 80143; 80179; 80307; 83036; 83735; 84443; 84484; 85025; 85610; 85730; 93005; 99285; S9485

== ENCOUNTER → 2024-05-02 01:48 | Outpatient (BNV) | payer OTHER, SELFPAY | PROVIDERS: Emergency Provider Internal Medicine; PCP Nurse Practitioner Adult Health; Visit Provider Internal Medicine | DX: T50.901A Poisoning by unspecified drugs, medicaments and biological substances, accidental (unintentional), initial encounter (principal) | CPT/HCPCS: 93010 ==

== ENCOUNTER → 2024-05-02 01:48 | Outpatient (BNV) | payer SELFPAY | PROVIDERS: Emergency Provider Internal Medicine; PCP Nurse Practitioner Adult Health; Visit Provider Radiology Neuroradiology | DX: R91.8 Other nonspecific abnormal finding of lung field (principal); T50.901A Poisoning by unspecified drugs, medicaments and biological substances, accidental (unintentional), initial encounter | CPT/HCPCS: 71045 ==

== ENCOUNTER → 2024-05-04 11:56 | Outpatient (BNV) | payer OTHER, SELFPAY | PROVIDERS: Admitting Provider Psychiatry & Neurology Psychiatry; Emergency Provider Internal Medicine; PCP Nurse Practitioner Adult Health; Visit Provider Psychiatry & Neurology Psychiatry | DX: F33.2 Major depressive disorder, recurrent severe without psychotic features (principal); F10.90 Alcohol use, unspecified, uncomplicated | CPT/HCPCS: 99231; 99232 ==